=== PATIENT | male | born 1985 | race Caucasian/White ===

== ENCOUNTER 2016-04-18 17:34 | Emergency (ER) | payer MEDICAID ==
[~2016-04-18] VITALS: Ht 172.7 cm; Wt 87.0 kg
[2016-04-18 17:37] VITALS: Ht 172.7 cm; Wt 87.0 kg
[2016-04-18] MEDS ORDERED: AMOX1TAB10 PO (19:05)
[2016-04-18] MEDS ORDERED: LORA10TA3 PO (19:05)
[2016-04-18] MEDS ORDERED: FLUT9.9S NASAL (19:05)
[2016-04-18] MEDS ORDERED: D-ME473S18 PO (19:06)
--- NOTE | 2016-04-18 19:10 | ERD ---
ER Documentation Chief Complaint Date/Time DATE: 04/18/16 TIME: 19:08 Chief Complaint cough congestion for past few months HPI This is a 30-year-old male who presents to the ER with nasal congestion for the last month. Patient states that it has now he developed frontal facial pain. Nasal congestion is green to yellow in color. He does admit to fevers and chills. Last night patient developed chest congestion with a dry cough. He denies any shortness of breath. He denies any chest pain. ROS 12 point review of systems was done, all negative except per HPI. Medications Home Meds Active Scripts Dextromethorphan Hb-Promethazine Hcl (Promethazine DM Syrup) 473 Ml Syrup, 10 ML PO Q6H Y for COUGH, #4 OZ Prov:JANICHUCK Tovar 04/18/16 Loratadine* (Loratadine*) 10 Mg Tablet, 10 MG PO DAILY, #30 TAB Prov:CHUCK GUNTER 04/18/16 Fluticasone Propionate (Flonase Allergy Relief) 9.9 Ml [place].susp, 1 SPRAY NASAL BID, #1 BOTTLE TO EACH NOSTRIL Prov:JANICHUCK Tovar 04/18/16 Amoxicillin/Potassium Clav (Amox-Clav 875-125 mg Tablet) 875-125 mg Tab, 1 TAB PO BID for 7 Days, #14 TAB Prov:MUMTAZ GUNTERELEANOR Tovar 04/18/16 Allergies Allergies: Coded Allergies: No Known Allergy (Unverified , 04/18/16) PMhx/Soc Medical and Surgical Hx: pt denies Medical Hx, pt denies Surgical Hx Hx Alcohol Use: No Hx Substance Use: No Hx Tobacco Use: No Physical Exam Vitals Vital Signs Date Time Temp Pulse Resp B/P Pulse Ox O2 Delivery O2 Flow Rate FiO2 04/18/16 17:37 98.2 87 18 143/72 97 Physical Exam GENERAL: The patient is well-developed, well-nourished, in no acute distress. NECK: Cervical spine is non tender with no step off. Supple, no nuchal rigidity HEENT: Atraumatic. Pupils equal, round and reactive to light. Extraocular muscles are grossly intact. Conjunctivae pink, no discharge. Bilateral tympanic membranes are clear with no evidence of erythema, effusion or dulling of the light reflex. Tonsilar erythema with no exudates or uvular deviation. Patient is tender to palpation over the frontal sign RESPIRATORY: Clear to auscultation bilaterally. There are no rales, wheezes or rhonchi. HEART: Regular rate and rhythm. No murmurs, clicks, rubs or gallops. EXTREMITIES: No clubbing or cyanosis. Full range of motion. Grossly neurovascularly intact. NEUROLOGIC: Alert and oriented. Cranial nerves II through XII are intact. SKIN: There is no rash. The skin is warm and dry. Procedures/MDM 1-year-old male who presents to the ER with continual nasal discharge and facial pain. Patient did have a fever at home however is afebrile here. He will be treated for possible sinusitis. He will also be sent home with loratadine, Flonase and promethazine. Patient is not hypoxic or in any respiratory distress he is well-appearing. Patient is to follow-up with his primary care doctor within 1-2 days and return to ER sooner if symptoms worsen. Discussed with the patient he understands and agrees with plan. Departure Diagnosis: Primary Impression: Sinusitis Condition: Stable Patient Instructions: Sinusitis, Abx Tx Additional Instructions: Llame al doctor MAANA y barak ha CARLITA PARA DENTRO DE 1-2 HUANG.Dgale a la secretaria que nosotros le instruimos hacer esta carlita.Avise o llame si rubi condicin se empeora antes de la carlita. Regresa aqui si peor o no mejor. CHUCK GUNTER Apr 18, 2016 19:10
== END 2016-04-18 19:15 | disposition home or self-care (01) ==
LOC: FTE 17:34
DX: J01.90 Acute sinusitis, unspecified (principal)
CPT/HCPCS: 99284

== ENCOUNTER 2017-03-17 08:42 | Emergency (ER) | END 2017-03-17 10:26 | disposition home or self-care (01) ==

== ENCOUNTER 2017-10-05 08:59 | Emergency (ER) | END 2017-10-05 10:31 | disposition home or self-care (01) ==